=== PATIENT | male | born 1985 | race Caucasian/White ===

== ENCOUNTER 2022-09-16 01:31 | Inpatient (IN) | payer MEDICAID, OTHER ==
[~2022-09-16] VITALS: Ht 175.3 cm; Wt 90.7 kg
[2022-09-16] MEDS ORDERED: ONDANSETRON HCL 4MG/2ML INJ IV STA (02:49)
[2022-09-16] MEDS ORDERED: LORAZEPAM 2MG/ML CPJ IV STA (02:49)
[2022-09-16] MEDS ORDERED: FOLIC ACID 1 MG, THIAMINE HCL 100 MG, MVI, ADULT NO.1 10 ML in DEXTROSE 5% WATER 1,000 ML IV ONE ×4 (03:00)
[2022-09-16 03:08] LABS: HEMATOCRIT. 41.7 % (42.0-52.0); HEMOGLOBIN. 14.3 g/dL (14.0-18.0); MEAN CORPUSCULAR HEMOGLOBIN 31.9 pg (28.0-32.0); MEAN CORPUSCULAR VOLUME 93.2 fL (80.0-94.0); MEAN PLATELET VOLUME 8.3 fl (7.4-10.4); PLATELET 103 x1000/uL (130-400); RED BLOOD CELL COUNT 4.48 mill/uL (4.7-6.1); RED CELL DISTRIBUTION WIDTH 14.2 % (11.6-14.6)
[2022-09-16 03:16] LABS: CHLORIDE 92 mEq/L (98-107)
[2022-09-16 04:13] LABS: CLARITY URINE CLOUDY (CLEAR); COLOR URINE DARK YELLOW (YELLOW); KETONES URINE 1+ (NEGATIVE); LEUKOCYTE ESTERASE URINE 1+ (NEGATIVE); NITRITE URINE POSITIVE (NEGATIVE); OCCULT BLOOD URINE NEGATIVE (NEGATIVE); PH URINE 7.5 (4.5-8.0); PROTEIN URINE 2+ (NEGATIVE); SPECIFIC GRAVITY URINE 1.028 (1.005-1.030)
[2022-09-16] MEDS ORDERED: MIDAZOLAM HCL 2 MG/2 ML VIAL IV NR (04:15)
[2022-09-16] MEDS ORDERED: METOCLOPRAMIDE HCL 10MG/2ML VIAL IV NR (04:15)
[2022-09-16 04:29] LABS: *AMPHETAMINES SCREEN URINE NEGATIVE (NEGATIVE); *BARBITURATES SCREEN URINE NEGATIVE (NEGATIVE); *BENZODIAZEPINES SCREEN URINE NEGATIVE (NEGATIVE); *COCAINE SCREEN URINE NEGATIVE (NEGATIVE); CANNABINOID URINE SCREEN PRESUMTIVE POSITIVE (NEGATIVE); METHADONE URINE SCREEN PRESUMTIVE POSITIVE (NEGATIVE); OPIATES URINE SCREEN NEGATIVE (NEGATIVE); PHENCYCLIDINE URINE SCREEN NEGATIVE (NEGATIVE)
[2022-09-16 04:38] LABS: PLATELET ESTIMATE DECREASED
[2022-09-16 04:53] LABS: ETHANOL BLOOD < 10 mg/dL
[2022-09-16] MEDS ORDERED: IOHEXOL-300 100 ML BOTTLE ONE (07:20)
[2022-09-16 10:30] VITALS: BP 159/108
[2022-09-16] MEDS ORDERED: AMLO-375 PO (10:46)
[2022-09-16] MEDS ORDERED: LISI-186 PO (10:50)
[2022-09-16] MEDS ORDERED: DEXL60CA3 PO (10:50)
[2022-09-16] MEDS ORDERED: ACYC200C31 PO ×2 (10:50→16:28)
[2022-09-16] MEDS ORDERED: DOCUSATE SODIUM 100MG CAPSULE PO PRN (11:15)
[2022-09-16] MEDS ORDERED: IPRATROPIUM/ALBUTEROL 0.5-3(2.5)MG/3ML NEB HHN PRN (11:15)
[2022-09-16] MEDS ORDERED: LORAZEPAM 0.5MG TABLET PO PRN (11:15)
[2022-09-16] MEDS ORDERED: ONDANSETRON HCL 4MG/2ML INJ IV PRN (11:15)
[2022-09-16] MEDS ORDERED: ACETAMINOPHEN 325MG TABLET PO PRN ×2 (11:15)
[2022-09-16] MEDS: CHLORDIAZEPOXIDE 25MG CAPSULE PO SCH ×3 (11:27→21:15)
[2022-09-16] MEDS: SODIUM CHLORIDE 0.9% 1,000 ML IV SCH ×2 (11:28→21:16)
[2022-09-16] MEDS: CLONIDINE 0.1MG TABLET PO PRN (11:28)
[2022-09-16 12:00] VITALS: BP 127/92
[2022-09-16] MEDS ORDERED: MVI, ADULT NO.1 10 ML, FOLIC ACID 1 MG, THIAMINE HCL 100 MG in SODIUM CHLORIDE 0.9% 1,0... IV SCH ×4 (12:30)
[2022-09-16] MEDS ORDERED: NALOXONE HCL 0.4MG/ML VIAL IV PRN (14:00)
[2022-09-16] MEDS: METHADONE HCL 10MG TABLET PO SCH (14:18)
[2022-09-16] MEDS ORDERED: INFLUENZA VACCINE 05/PF 0.5 ML SYRINGE IM ONE (15:30)
[2022-09-16 16:00] VITALS: BP 138/98
[2022-09-16] MEDS ORDERED: ACYCLOVIR 400 MG TABLET PO SCH (16:15)
[2022-09-16] MEDS: HYDROCODONE/ACETAMINOPHEN 5/325MG TABLET PO PRN (17:45)
[2022-09-16] MEDS: LORAZEPAM 2MG/ML CPJ IV PRN (17:45)
[2022-09-16] MEDS: PANTOPRAZOLE SODIUM 40 MG/VIAL IV SCH (17:46)
[2022-09-16 20:00] VITALS: BP 131/96
[2022-09-16] MEDS: ACYCLOVIR 400 MG TABLET PO SCH (21:15)
[2022-09-16] MEDS: CEFTRIAXONE 1,000 MG in DEXTROSE 5% WATER 50 ML IV SCH (21:16)
[2022-09-16 22:09] LABS: VITAMIN B12 SERUM 1121 pg/mL (211-911)
[2022-09-17] VITALS: BP 131/91
[2022-09-17 04:00] VITALS: BP 147/90
[2022-09-17] MEDS: CHLORDIAZEPOXIDE 25MG CAPSULE PO SCH ×3 (04:45→21:36)
[2022-09-17 06:53] LABS: AMYLASE 95 IU/L (25-115)
[2022-09-17 07:04] LABS: BASOPHILS % 0.4 % (0.0-2.0); HEMATOCRIT. 38.5 % (42.0-52.0); HEMOGLOBIN. 13.2 g/dL (14.0-18.0); LYMPHOCYTES % 21.5 % (20.0-50.0); MEAN CORPUSCULAR HEMOGLOBIN 32.5 pg (28.0-32.0); MEAN PLATELET VOLUME 8.2 fl (7.4-10.4); MONOCYTES % 10.4 % (2.0-8.0); NEUTROPHILS % 66.7 % (40.0-76.0); PLATELET 79 x1000/uL (130-400); RED BLOOD CELL COUNT 4.06 mill/uL (4.7-6.1); RED CELL DISTRIBUTION WIDTH 14.4 % (11.6-14.6)
[2022-09-17 08:00] VITALS: BP 129/87
[2022-09-17 08:01] LABS: CHLORIDE 96 mEq/L (98-107)
[2022-09-17] MEDS: LORAZEPAM 2MG/ML CPJ IV PRN ×2 (08:41→16:09)
[2022-09-17] MEDS: HYDROCODONE/ACETAMINOPHEN 5/325MG TABLET PO PRN ×2 (08:41→16:10)
[2022-09-17] MEDS: ACYCLOVIR 400 MG TABLET PO SCH ×2 (08:42→16:09)
[2022-09-17] MEDS: PANTOPRAZOLE SODIUM 40 MG/VIAL IV SCH (08:42)
[2022-09-17] MEDS: METHADONE HCL 10MG TABLET PO SCH (08:42)
[2022-09-17] MEDS: DEXT 5%/0.9% NACL 1,000 ML IV SCH ×2 (10:38→21:37)
[2022-09-17 12:00] VITALS: BP 137/88
[2022-09-17 16:00] VITALS: BP 137/84
[2022-09-17] MEDS: OMEPRAZOLE 20MG CAPSULE EXTENDED RELEASE PO SCH (16:09)
[2022-09-17] MEDS: CEFTRIAXONE 1,000 MG in DEXTROSE 5% WATER 50 ML IV SCH (16:09)
[2022-09-17 20:00] VITALS: BP 117/78
[2022-09-17] MEDS: FAMOTIDINE 20MG/2ML VIAL IV SCH (21:36)
[2022-09-18] VITALS: BP 118/60
[2022-09-18 04:00] VITALS: BP 136/89
[2022-09-18] MEDS: OMEPRAZOLE 20MG CAPSULE EXTENDED RELEASE PO SCH (05:14)
[2022-09-18] MEDS: CHLORDIAZEPOXIDE 25MG CAPSULE PO SCH ×3 (05:14→22:30)
[2022-09-18 05:49] LABS: EOSINOPHILS % 3.4 % (0.0-5.0); HEMATOCRIT. 37.9 % (42.0-52.0); HEMOGLOBIN. 12.9 g/dL (14.0-18.0); LYMPHOCYTES % 38.2 % (20.0-50.0); MEAN CORPUSCULAR HEMOGLOBIN 32.4 pg (28.0-32.0); MEAN CORPUSCULAR VOLUME 95.3 fL (80.0-94.0); MEAN PLATELET VOLUME 8.4 fl (7.4-10.4); MONOCYTES % 9.8 % (2.0-8.0); NEUTROPHILS % 47.6 % (40.0-76.0); PLATELET 83 x1000/uL (130-400); RED BLOOD CELL COUNT 3.97 mill/uL (4.7-6.1); RED CELL DISTRIBUTION WIDTH 14.3 % (11.6-14.6)
[2022-09-18 07:58] VITALS: BP 149/92
[2022-09-18 08:19] LABS: CHLORIDE 103 mEq/L (98-107)
[2022-09-18 08:28] LABS: AMYLASE 73 IU/L (25-115)
[2022-09-18] MEDS: METHADONE HCL 10MG TABLET PO SCH (08:42)
[2022-09-18] MEDS: ACYCLOVIR 400 MG TABLET PO SCH ×2 (08:42→17:53)
[2022-09-18] MEDS: FAMOTIDINE 20MG/2ML VIAL IV SCH ×2 (08:43→20:27)
[2022-09-18] MEDS ORDERED: MULTIVITAMINS,THER W-MINERALS TABLET PO SCH (09:15)
[2022-09-18] MEDS: LORAZEPAM 2MG/ML CPJ IV PRN ×3 (09:18→22:34)
[2022-09-18] MEDS: HYDROCODONE/ACETAMINOPHEN 5/325MG TABLET PO PRN ×3 (09:18→22:34)
[2022-09-18] MEDS: FOLIC ACID 1MG TABLET PO SCH (10:29)
[2022-09-18] MEDS: THIAMINE HCL 100MG TABLET PO SCH (10:29)
[2022-09-18 12:00] VITALS: BP 117/82
[2022-09-18] MEDS: DEXT 5%/0.9% NACL 1,000 ML IV SCH ×2 (13:26→22:30)
[2022-09-18 16:00] VITALS: BP 140/90
[2022-09-18] MEDS: CEFTRIAXONE 1,000 MG in DEXTROSE 5% WATER 50 ML IV SCH (17:53)
[2022-09-18 20:00] VITALS: BP 152/85
[2022-09-19] VITALS: BP 135/80
[2022-09-19 04:00] VITALS: BP 169/105
[2022-09-19] MEDS: CHLORDIAZEPOXIDE 25MG CAPSULE PO SCH ×3 (05:12→21:50)
[2022-09-19] MEDS: HYDROCODONE/ACETAMINOPHEN 5/325MG TABLET PO PRN ×5 (05:12→21:52)
[2022-09-19] MEDS: LORAZEPAM 2MG/ML CPJ IV PRN ×5 (05:12→21:52)
[2022-09-19] MEDS: CLONIDINE 0.1MG TABLET PO PRN (05:39)
[2022-09-19] MEDS: OMEPRAZOLE 20MG CAPSULE EXTENDED RELEASE PO SCH (06:23)
[2022-09-19 06:54] LABS: BASOPHILS % 2.2 % (0.0-2.0); EOSINOPHILS % 5.5 % (0.0-5.0); HEMATOCRIT. 37.4 % (42.0-52.0); HEMOGLOBIN. 12.7 g/dL (14.0-18.0); LYMPHOCYTES % 36.2 % (20.0-50.0); MEAN CORPUSCULAR HEMOGLOBIN 32.4 pg (28.0-32.0); MEAN CORPUSCULAR VOLUME 95.8 fL (80.0-94.0); MEAN PLATELET VOLUME 8.3 fl (7.4-10.4); MONOCYTES % 12.2 % (2.0-8.0); NEUTROPHILS % 43.9 % (40.0-76.0); PLATELET 107 x1000/uL (130-400); RED BLOOD CELL COUNT 3.91 mill/uL (4.7-6.1); RED CELL DISTRIBUTION WIDTH 14.3 % (11.6-14.6)
[2022-09-19 07:27] LABS: CHLORIDE 108 mEq/L (98-107)
[2022-09-19 07:36] LABS: AMYLASE 66 IU/L (25-115)
[2022-09-19 08:00] VITALS: BP 116/84
[2022-09-19] MEDS: METHADONE HCL 10MG TABLET PO SCH (08:18)
[2022-09-19] MEDS: FAMOTIDINE 20MG/2ML VIAL IV SCH ×2 (08:18→21:53)
[2022-09-19] MEDS: FOLIC ACID 1MG TABLET PO SCH (08:18)
[2022-09-19] MEDS: THIAMINE HCL 100MG TABLET PO SCH (08:18)
[2022-09-19 12:00] VITALS: BP 136/91
[2022-09-19] MEDS: DEXT 5%/0.9% NACL 1,000 ML IV SCH (12:11)
[2022-09-19] MEDS: ACYCLOVIR 400 MG TABLET PO SCH ×2 (12:12→17:19)
[2022-09-19] MEDS ORDERED: LEVO-65 MT (13:26)
[2022-09-19] MEDS: MULTIVITAMINS,THER W-MINERALS TABLET PO SCH (14:46)
[2022-09-19 16:00] VITALS: BP 132/95
[2022-09-19] MEDS: CEFTRIAXONE 1,000 MG in DEXTROSE 5% WATER 50 ML IV SCH (17:19)
[2022-09-19 20:00] VITALS: BP 151/94
[2022-09-19] MEDS: LACTULOSE 20G/30ML UDC PO SCH (21:49)
[2022-09-20] VITALS (8 sets, daily range): BP systolic 103–195; BP diastolic 71–126
[2022-09-20] MEDS: CLONIDINE 0.1MG TABLET PO PRN (04:23)
[2022-09-20] MEDS: HYDROCODONE/ACETAMINOPHEN 5/325MG TABLET PO PRN ×5 (04:36→23:34)
[2022-09-20] MEDS: LORAZEPAM 2MG/ML CPJ IV PRN ×5 (04:37→23:36)
[2022-09-20] MEDS: LACTULOSE 20G/30ML UDC PO SCH ×3 (06:10→21:05)
[2022-09-20] MEDS: OMEPRAZOLE 20MG CAPSULE EXTENDED RELEASE PO SCH (06:10)
[2022-09-20] MEDS: CHLORDIAZEPOXIDE 25MG CAPSULE PO SCH ×3 (06:10→21:06)
[2022-09-20] MEDS: METHADONE HCL 10MG TABLET PO SCH (08:55)
[2022-09-20] MEDS: MULTIVITAMINS,THER W-MINERALS TABLET PO SCH (08:56)
[2022-09-20] MEDS: FOLIC ACID 1MG TABLET PO SCH (08:57)
[2022-09-20] MEDS: THIAMINE HCL 100MG TABLET PO SCH (08:57)
[2022-09-20] MEDS: AMLODIPINE 10MG TABLET PO SCH (08:57)
[2022-09-20] MEDS ORDERED: HYDRALAZINE HCL 50MG TABLET PO SCH (09:00)
[2022-09-20] MEDS: DEXT 5%/0.9% NACL 1,000 ML IV SCH ×3 (09:01→23:37)
[2022-09-20] MEDS: ACYCLOVIR 400 MG TABLET PO SCH ×2 (09:09→17:26)
[2022-09-20] MEDS: FAMOTIDINE 20MG/2ML VIAL IV SCH ×2 (09:09→21:06)
[2022-09-20] MEDS: HYDRALAZINE HCL 100MG TABLET PO SCH ×2 (13:31→21:07)
[2022-09-20] MEDS ORDERED: THIA100T88 MT (14:38)
[2022-09-20] MEDS ORDERED: HYDR100T26 MT (14:38)
[2022-09-20] MEDS ORDERED: AMLO10TA80 MT (14:38)
[2022-09-20] MEDS: CEFTRIAXONE 1,000 MG in DEXTROSE 5% WATER 50 ML IV SCH (17:26)
[2022-09-21 04:00] VITALS: BP 141/103
[2022-09-21] MEDS: HYDROCODONE/ACETAMINOPHEN 5/325MG TABLET PO PRN ×2 (04:22→07:57)
[2022-09-21] MEDS: LORAZEPAM 2MG/ML CPJ IV PRN ×3 (04:23→09:22)
[2022-09-21] MEDS: HYDRALAZINE HCL 100MG TABLET PO SCH (05:28)
[2022-09-21] MEDS: CHLORDIAZEPOXIDE 25MG CAPSULE PO SCH (05:28)
[2022-09-21] MEDS: LACTULOSE 20G/30ML UDC PO SCH (05:31)
[2022-09-21] MEDS: OMEPRAZOLE 20MG CAPSULE EXTENDED RELEASE PO SCH (06:14)
[2022-09-21 07:54] VITALS: BP 149/100
[2022-09-21 08:00] VITALS: BP 149/103
[2022-09-21] MEDS: METHADONE HCL 10MG TABLET PO SCH (09:23)
[2022-09-21] MEDS: THIAMINE HCL 100MG TABLET PO SCH (09:23)
[2022-09-21] MEDS: AMLODIPINE 10MG TABLET PO SCH (09:23)
[2022-09-21] MEDS: FOLIC ACID 1MG TABLET PO SCH (09:23)
[2022-09-21] MEDS: MULTIVITAMINS,THER W-MINERALS TABLET PO SCH (09:24)
[2022-09-21] MEDS: FAMOTIDINE 20MG/2ML VIAL IV SCH (09:24)
[2022-09-21] MEDS: ACYCLOVIR 400 MG TABLET PO SCH (10:08)
[2022-09-21 10:39] VITALS: BP 149/100
[2022-09-22] MEDS ORDERED: MULT-230 MT (06:53)
[2022-09-22] MEDS ORDERED: FOLI-43 MT (06:53)
[2022-09-22] MEDS ORDERED: L25 MT (06:53)
[2022-09-22] MEDS ORDERED: HYDR-459 MT (09:45)
== END 2022-09-21 12:44 | disposition home or self-care (01) | DRG 282 ==
LOC: ER 01:31 → 8WST 06:17 → ENRESERV 08:33
PROVIDERS: ADMIT Internal Medicine; ATTEND Internal Medicine
DX: K85.20 Alcohol induced acute pancreatitis without necrosis or infection (principal); G92.8 Other toxic encephalopathy; E72.20 Disorder of urea cycle metabolism, unspecified; R16.0 Hepatomegaly, not elsewhere classified; D72.0 Genetic anomalies of leukocytes; K76.0 Fatty (change of) liver, not elsewhere classified; I10 Essential (primary) hypertension; N39.0 Urinary tract infection, site not specified; R74.01 Elevation of levels of liver transaminase levels; D53.9 Nutritional anemia, unspecified; M19.90 Unspecified osteoarthritis, unspecified site; F31.9 Bipolar disorder, unspecified; F41.9 Anxiety disorder, unspecified; F11.90 Opioid use, unspecified, uncomplicated; F10.239 Alcohol dependence with withdrawal, unspecified; Z79.899 Other long term (current) drug therapy; Z78.1 Physical restraint status; Z87.891 Personal history of nicotine dependence
CPT/HCPCS: 36415; 71045; 74177; 76700; 80048; 80053; 80076; 80305; 80320; 81003; 82140; 82150; 82248; 82607; 82746; 84443; 85025; 86301; 90686; 97162; 99291; C9113; J0696; J2060; J2250; J2405; J2765; J3411; J3490; J7030; J7042; J7060; J7070; Q9967; G0480